=== PATIENT | male | born 1980 | race Native Hawaiian/Other Pacific Islander ===

== ENCOUNTER 2022-02-24 22:37 | Emergency (ER) | payer SELFPAY ==
[2022-02-24 22:45] VITALS: BP 120/80
== END 2022-02-24 23:25 | disposition home or self-care (01) | DRG 605 ==
LOC: ED 22:37 → EDSEX 22:37 → ED 23:16
PROC: 0HQFXZZ Repair Right Hand Skin, External Approach (ICD-10-PCS; principal; 2022-02-24)
DX: S61.212A Laceration without foreign body of right middle finger without damage to nail, initial encounter (principal); W26.0XXA Contact with knife, initial encounter